=== PATIENT | female | born 1975 | race Caucasian/White ===

== ENCOUNTER 2017-03-30 14:56 | Emergency (ER) | payer MEDICARE, MEDICAID ==
[~2017-03-30] VITALS: Ht 162.6 cm; Wt 58.2 kg
[2017-03-30 15:01] VITALS: TEMP 98.1
[2017-03-30 15:44] LABS: BASO # 0.1 (0.0-0.2); BASO % 0.8 % (0.0-2.0); EOS # 0.2 (0.0-0.7); EOS % 2.2 % (0-4.0); GRAN # 5.4 (1.4-6.5); GRAN % 57.7 % (42.2-75.2); HEMATOCRIT 37.4 % (37.0-47.0); HEMOGLOBIN 12.4 g/dl (12.5-16.0); LYMPH # 2.5 (1.2-3.4); LYMPH % 27.4 % (20.0-51.0); MEAN CELL VOLUME 94 fl (80.0-100.0); MEAN CORPUSCULAR HEMOGLOBIN 31 pg (27.0-31.0); MEAN CORPUSCULAR HGB CONC 33 g/dl (33.0-37.0); MEAN PLATELET VOLUME 9.1 fl (7.4-10.4); MONO # 1.1 (0.1-0.6); MONO % 11.7 % (1.7-9.3); PLATELET COUNT 345 K/mm3 (130-400); WHITE BLOOD COUNT 9.3 K/mm3 (4.8-10.8)
[2017-03-30 15:55] LABS: ADJUSTED CALCIUM 8.6 mg/dL (8.4-10.2); ALANINE AMINOTRANSFERASE 26 U/L (9-52); ALBUMIN 4.7 gm/dL (3.5-5.0); ALKALINE PHOSPHATASE 77 U/L (50-136); ANION GAP 9 mmol/L (7-16); BILIRUBIN,TOTAL 0.7 mg/dL (0.0-1.0); BLOOD UREA NITROGEN 19 mg/dL (7-17); CALCIUM 9.2 mg/dL (8.4-10.2); CARBON DIOXIDE 24 mmol/L (22-30); CHLORIDE 104 mmol/L (98-107); CREATININE, serum 0.78 mg/dL (0.52-1.25); GLUCOSE 82 mg/dL (74-106); SODIUM 136 mmol/L (137-145)
[2017-03-30 15:58] LABS: ACETAMINOPHEN < 10 ug/mL (10-30)
[2017-03-30 15:59] LABS: ALCOHOL(ethanol),MEDICAL < 10 mg/dL; SALICYLATE < 1.0 mg/dL
[2017-03-30 16:06] LABS: AMPHETAMINE URINE POSITIVE; BARBITURATES URINE NEGATIVE; BENZODIAZEPINES URINE POSITIVE; BUPRENORPHINE URINE NEGATIVE; METHADONE URINE NEGATIVE; OPIATES URINE NEGATIVE; OXYCODONE URINE NEGATIVE; PHENCYCLIDINE URINE NEGATIVE; PROPOXYPHENE URINE NEGATIVE; THC CANNABINOIDS URINE POSITIVE; TRICYCLIC ANTIDEPRESS URINE NEGATIVE
[2017-03-30] MEDS ORDERED: ZOLOFT 100MG100 MG PO (17:27)
[2017-03-30] MEDS ORDERED: PRIL40 PO (17:27)
[2017-03-30] MEDS ORDERED: ZYPREXA 5MG5 MG PO (17:27)
[2017-03-30] MEDS ORDERED: ZYPREXA15 MG PO (17:28)
[2017-03-30] MEDS ORDERED: KLONOPIN 1MG1 MG PO (17:29)
[2017-03-30] MEDS ORDERED: ADDERALL20 MG PO (17:29)
[2017-03-30] MEDS ORDERED: DITROPAN 5MG TAB5 MG PO (17:31)
[2017-03-30] MEDS ORDERED: DEPAKOTE ER 50500 MG PO (17:31)
[2017-03-30] MEDS ORDERED: HALDOL 5MG T5 MG/TAB PO (17:32)
[2017-03-30] MEDS ORDERED: FOLIC ACID 11 MG/TA1 PO (17:32)
[2017-03-30] MEDS ORDERED: SYNTHROID 0.10.15 MG PO (17:33)
[2017-03-30 22:39] VITALS: BP 141/80; PULSE 86
== END 2017-03-31 00:08 ==
LOC: COL.ER 14:56
PROVIDERS: Physician Assistant Medical
DX: F31.9 Bipolar disorder, unspecified (principal); F17.210 Nicotine dependence, cigarettes, uncomplicated

== ENCOUNTER 2021-02-19 06:37 | Emergency (ER) | payer MEDICARE ==
[~2021-02-19] VITALS: Ht 162.6 cm; Wt 59.1 kg
[~2021-02-19 06:37] MED LIST: ADDERALL20 MG PO; DEPAKOTE ER 50500 MG PO; DITROPAN 5MG TAB5 MG PO; FOLIC ACID 11 MG/TA1 PO; HALDOL 5MG T5 MG/TAB PO; KLONOPIN 1MG1 MG PO; PRIL40 PO; SYNTHROID 0.10.15 MG PO; SYNTHROID PO; ZOLOFT 100MG100 MG PO; ZYPREXA 5MG5 MG PO; ZYPREXA15 MG PO
[2021-02-19 06:41] VITALS: TEMP 98.2
[2021-02-19 07:02] LABS: BASO # 0.1 K/mm3 (0.0-0.2); BASO % 0.8 % (0.0-2.0); EOS # 0.1 K/mm3 (0.0-0.7); EOS % 1.4 % (0-4.0); GRAN # 6.1 K/mm3 (1.4-6.5); GRAN % 70.6 % (42.2-75.2); HEMATOCRIT 41.7 % (37.0-47.0); HEMOGLOBIN 14.4 g/dl (12.5-16.0); LYMPH # 1.6 K/mm3 (1.2-3.4); LYMPH % 18.1 % (20.0-51.0); MEAN CELL VOLUME 97 fl (80.0-100.0); MEAN CORPUSCULAR HEMOGLOBIN 33 pg (27.0-31.0); MEAN CORPUSCULAR HGB CONC 35 g/dl (33.0-37.0); MEAN PLATELET VOLUME 9.3 fl (7.4-10.4); MONO # 0.8 K/mm3 (0.1-0.6); MONO % 8.8 % (1.7-9.3); PLATELET COUNT 302 K/mm3 (130-400); RED BLOOD COUNT 4.31 M/mm3 (4.10-5.30); REDCELL DISTRIBUTION WIDTH-CV 11.7 % (11.5-14.5)
[2021-02-19 07:31] LABS: ALBUMIN 4.1 gm/dL (3.5-5.0); BILIRUBIN,TOTAL 0.6 mg/dL (0.2-1.2); CALCIUM 9.9 mg/dL (8.4-10.2); CREATININE, serum 0.74 mg/dL (0.57-1.11); POTASSIUM 3.8 mmol/L (3.5-4.5); TOTAL PROTEIN 7.5 gm/dL (6.2-8.1)
[2021-02-19 07:37] LABS: TROPONIN-I 0.015 ng/mL (0.00-0.033)
[2021-02-19 08:04] VITALS: BP 187/129; PULSE 99
[2021-02-19] MEDS ORDERED: AMOXICILLIN 8751 TAB PO (11:41)
[2021-02-19] MEDS ORDERED: NORVASC 5MG5 MG/TAB PO (11:48)
== END 2021-02-19 08:06 | disposition home or self-care (01) ==
LOC: COL.ER 06:37
PROVIDERS: Emergency Medicine
DX: F41.9 Anxiety disorder, unspecified (principal); I10 Essential (primary) hypertension; E07.9 Disorder of thyroid, unspecified; F17.200 Nicotine dependence, unspecified, uncomplicated; Z79.890 Hormone replacement therapy
CPT/HCPCS: J2060

== ENCOUNTER 2021-02-19 09:49 | Emergency (ER) | payer MEDICARE ==
[~2021-02-19] VITALS: Ht 162.6 cm; Wt 59.1 kg
[2021-02-19 09:56] VITALS: TEMP 97.9
[2021-02-19 10:56] LABS: TRICYCLIC ANTIDEPRESS URINE NEGATIVE
[2021-02-19] MEDS ORDERED: AMOXICILLIN 8751 TAB PO (11:41)
[2021-02-19] MEDS ORDERED: NORVASC 5MG5 MG/TAB PO (11:48)
[2021-02-19 12:05] VITALS: BP 161/94; PULSE 88
== END 2021-02-19 12:10 | disposition home or self-care (01) ==
LOC: COL.ER 09:49
PROVIDERS: Nurse Practitioner
DX: F41.9 Anxiety disorder, unspecified (principal); I10 Essential (primary) hypertension; F15.10 Other stimulant abuse, uncomplicated; J32.9 Chronic sinusitis, unspecified; E03.9 Hypothyroidism, unspecified; F90.9 Attention-deficit hyperactivity disorder, unspecified type; Z79.890 Hormone replacement therapy; Z79.899 Other long term (current) drug therapy
CPT/HCPCS: J0360; J2060

== ENCOUNTER 2021-07-10 03:36 | Emergency (ER) | payer MEDICARE ==
[~2021-07-10] VITALS: Ht 170.2 cm; Wt 59.5 kg
[~2021-07-10 03:36] MED LIST changes: +AMOXICILLIN 8751 TAB PO; +NORVASC 5MG5 MG/TAB PO
[2021-07-10 03:38] VITALS: TEMP 97.8
[2021-07-10 04:18] VITALS: BP 137/103; PULSE 114
== END 2021-07-10 04:18 | disposition home or self-care (01) ==
LOC: COL.ER 03:36
DX: S91.332A Puncture wound without foreign body, left foot, initial encounter (principal); F90.9 Attention-deficit hyperactivity disorder, unspecified type; Z23 Encounter for immunization; Z79.899 Other long term (current) drug therapy; W26.8XXA Contact with other sharp object(s), not elsewhere classified, initial encounter; Y93.01 Activity, walking, marching and hiking

== ENCOUNTER 2022-09-05 12:19 | Emergency (ER) | payer OTHER ==
[~2022-09-05] VITALS: Ht 162.6 cm; Wt 62.3 kg
[2022-09-05 13:14] LABS: BASO # 0.1 K/mm3 (0.0-0.2); BASO % 0.6 % (0.0-2.0); EOS % 0.4 % (0.0-4.0); GRAN # 5.4 K/mm3 (1.4-6.5); GRAN % 63.3 % (42.2-75.2); HEMATOCRIT 41.3 % (37.0-47.0); HEMOGLOBIN 14.3 g/dl (12.5-16.0); LYMPH # 1.9 K/mm3 (1.2-3.4); LYMPH % 22.6 % (20.0-51.0); MEAN CELL VOLUME 94 fl (80.0-100.0); MEAN CORPUSCULAR HEMOGLOBIN 32 pg (27-31); MEAN CORPUSCULAR HGB CONC 35 g/dl (33.0-37.0); MONO # 1.1 K/mm3 (0.1-0.6); MONO % 12.7 % (1.7-9.3); PLATELET COUNT 272 K/mm3 (130-400); RED BLOOD COUNT 4.41 M/mm3 (4.10-5.30); REDCELL DISTRIBUTION WIDTH-CV 12.7 % (11.5-14.5)
[2022-09-05 13:30] LABS: ALBUMIN 4.4 gm/dL (3.5-5.0); ALKALINE PHOSPHATASE 65 U/L (40-150); ANION GAP 13 mmol/L (7-16); AST,SGOT 11 U/L (5-34); BILIRUBIN,TOTAL 0.4 mg/dL (0.2-1.2); BLOOD UREA NITROGEN 13 mg/dL (7-19); CALCIUM 9.9 mg/dL (8.4-10.2); CARBON DIOXIDE 23 mmol/L (22-29); CHLORIDE 103 mmol/L (98-107); CREATININE, serum 0.78 mg/dL (0.57-1.11); GLUCOSE 101 mg/dL (70-99); POTASSIUM 3.9 mmol/L (3.5-4.5); SODIUM 139 mmol/L (136-145); TOTAL PROTEIN 7.6 gm/dL (6.2-8.1)
[2022-09-05 13:32] LABS: ACETAMINOPHEN < 1.0 ug/mL (10-30); ALANINE AMINOTRANSFERASE < 6 U/L (0-55); ALCOHOL(ethanol),MEDICAL < 10 mg/dL (0-10); SALICYLATE < 5.0 mg/dL (15.0-30.0)
[2022-09-05 14:11] LABS: COLLECTION METHOD CLEAN CATCH
[2022-09-05 14:19] LABS: MUCOUS Present (NOT PRESENT); URINE BACTERIA None Seen /hpf (NONE SEEN)
[2022-09-05 14:20] LABS: URINE APPEARANCE Hazy (CLEAR/HAZY); URINE BLOOD Negative (NEGATIVE); URINE COLOR Yellow (YELLOW); URINE GLUCOSE Negative (NEGATIVE); URINE KETONE TRACE (NEGATIVE); URINE NITRATE Negative (NEGATIVE); URINE PROTEIN(semi-quant) 1+ (NEGATIVE); URINE UROBILINOGEN 0.2 E.U/dL (0.2-1.0)
[2022-09-05 14:32] LABS: TRICYCLIC ANTIDEPRESS URINE NEGATIVE
[2022-09-06 10:58] VITALS: BP 110/65; PULSE 111; TEMP 97.8
== END 2022-09-06 13:50 | disposition home or self-care (01) ==
LOC: COL.ER 12:19
PROVIDERS: Emergency Medicine
DX: F15.10 Other stimulant abuse, uncomplicated (principal); F17.290 Nicotine dependence, other tobacco product, uncomplicated; Z20.822 Contact with and (suspected) exposure to COVID-19

== ENCOUNTER 2022-09-07 04:12 | Emergency (ER) | payer OTHER ==
[~2022-09-07] VITALS: Ht 162.6 cm; Wt 62.3 kg
[2022-09-07 04:45] LABS: BASO # 0.1 K/mm3 (0.0-0.2); BASO % 0.8 % (0.0-2.0); EOS # 0.1 K/mm3 (0.0-0.7); EOS % 1.2 % (0.0-4.0); GRAN # 3.4 K/mm3 (1.4-6.5); GRAN % 52.9 % (42.2-75.2); HEMATOCRIT 40.8 % (37.0-47.0); HEMOGLOBIN 14.5 g/dl (12.5-16.0); LYMPH # 2.2 K/mm3 (1.2-3.4); LYMPH % 34.8 % (20.0-51.0); MEAN CELL VOLUME 91 fl (80.0-100.0); MEAN CORPUSCULAR HEMOGLOBIN 32 pg (27-31); MEAN CORPUSCULAR HGB CONC 36 g/dl (33.0-37.0); MONO # 0.6 K/mm3 (0.1-0.6); PLATELET COUNT 330 K/mm3 (130-400); RED BLOOD COUNT 4.47 M/mm3 (4.10-5.30); REDCELL DISTRIBUTION WIDTH-CV 12.2 % (11.5-14.5)
[2022-09-07 04:55] LABS: COLLECTION METHOD CLEAN CATCH
[2022-09-07 05:04] LABS: ALANINE AMINOTRANSFERASE 7 U/L (0-55); ALBUMIN 4.4 gm/dL (3.5-5.0); ALKALINE PHOSPHATASE 63 U/L (40-150); AST,SGOT 12 U/L (5-34); BILIRUBIN,TOTAL 0.3 mg/dL (0.2-1.2); BLOOD UREA NITROGEN 12 mg/dL (7-19); CALCIUM 9.8 mg/dL (8.4-10.2); CARBON DIOXIDE 22 mmol/L (22-29); CHLORIDE 103 mmol/L (98-107); CREATININE, serum 0.77 mg/dL (0.57-1.11); GLUCOSE 88 mg/dL (70-99); POTASSIUM 3.9 mmol/L (3.5-4.5); SODIUM 138 mmol/L (136-145); TOTAL PROTEIN 7.5 gm/dL (6.2-8.1)
[2022-09-07 05:11] LABS: URINE APPEARANCE Clear (CLEAR/HAZY); URINE BLOOD Negative (NEGATIVE); URINE COLOR Yellow (YELLOW); URINE GLUCOSE Negative (NEGATIVE); URINE KETONE Negative (NEGATIVE); URINE NITRATE Negative (NEGATIVE); URINE PROTEIN(semi-quant) Negative (NEGATIVE); URINE UROBILINOGEN 0.2 E.U/dL (0.2-1.0)
[2022-09-07 05:12] LABS: ACETAMINOPHEN < 1.0 ug/mL (10-30); ALCOHOL(ethanol),MEDICAL < 10 mg/dL (0-10); ANION GAP 13 mmol/L (7-16); SALICYLATE < 5.0 mg/dL (15.0-30.0)
[2022-09-07 05:13] LABS: AMORPHOUS CRYSTAL Present (NOT PRESENT); MUCOUS Present (NOT PRESENT); SQUAMOUS EPITHELIAL 0-2 /hpf (0-10); URINE BACTERIA None Seen /hpf (NONE SEEN); URINE RBC 0-2 /hpf (0-2)
[2022-09-07 05:23] LABS: TRICYCLIC ANTIDEPRESS URINE NEGATIVE
[2022-09-07 18:25] VITALS: BP 129/88; PULSE 104; TEMP 97.8
== END 2022-09-07 18:25 ==
LOC: COL.ER 04:12
PROVIDERS: Emergency Medicine
DX: F29 Unspecified psychosis not due to a substance or known physiological condition (principal); F15.10 Other stimulant abuse, uncomplicated; Z20.822 Contact with and (suspected) exposure to COVID-19